=== PATIENT | female | born 1975 | race Caucasian/White ===

== ENCOUNTER → 2020-04-16 | Outpatient (CLI) | payer OTHER | LOC: M.CT 12:12 | PROVIDERS: ATTEND Orthopaedic Surgery | DX: Z13.6 Encounter for screening for cardiovascular disorders (principal) ==

== ENCOUNTER → 2020-05-30 | Outpatient (CLI) | payer OTHER ==
[2020-05-30 15:28] LABS: HEMATOCRIT 42.4 % (37.0-47.0); HEMOGLOBIN 14.6 gm/dL (12.0-15.0); MCH 33.2 pg (26.0-34.0); MCHC 34.5 g/dL (28.0-37.0); MCV 96.2 fL (80.0-100.0); MPV 6.4 fl. (7.2-11.1); RBC 4.41 mil/uL (4.20-5.00); RDW-CV 12.7 % (10.5-14.5); WBC 6.3 thou/uL (4.0-11.0)
[2020-05-30 15:52] LABS: ALBUMIN 4.4 g/dL (3.4-5.0); CALCIUM 8.7 mg/dL (8.5-10.1); CREATININE 1.1 mg/dL (0.6-1.3); POTASSIUM 4.3 mmol/L (3.5-5.1); TOTAL BILIRUBIN 0.7 mg/dL (<0.1-1.0); TOTAL PROTEIN 8.1 g/dL (6.4-8.2)
== END ==
LOC: M.LAB 15:09
PROVIDERS: ATTEND Anesthesiology
DX: E87.6 Hypokalemia (principal)

== ENCOUNTER → 2020-12-31 | Outpatient (CLI) | payer OTHER | LOC: M.MRI 09:10 | PROVIDERS: ATTEND Orthopaedic Surgery | DX: S83.242A Other tear of medial meniscus, current injury, left knee, initial encounter (principal); M17.12 Unilateral primary osteoarthritis, left knee; X58.XXXA Exposure to other specified factors, initial encounter; Y93.89 Activity, other specified; Y92.89 Other specified places as the place of occurrence of the external cause; Y99.8 Other external cause status ==

== ENCOUNTER → 2021-01-16 | Outpatient (CLI) | payer OTHER ==
[~2021-01-16] MED LIST: ADDERALL XR 3030 MG PO; INTERMEZZO3.5 MG PO; LEXAPRO 10 MG T10 M1 PO; LORAZEPAM 1 MG T1 MG PO; NORCO7.5 PO; OMEPRAZOLE 20 M20 M1 PO; PLAQUENIL200 MG PO; TRIAMTERENE/HCT1 CA1 PO
[2021-01-16 14:17] LABS: ABSOLUTE LYMPHOCYTES 1.1 thou/uL (0.8-5.3); ABSOLUTE MONOCYTES 0.5 thou/uL (0.0-1.2); ABSOLUTE NEUTROPHILS 5.9 thou/uL (1.6-8.1); BASOPHILS 0.3 %; EOSINOPHILS 0.3 %; HEMATOCRIT 42.4 % (37.0-47.0); HEMOGLOBIN 14.2 gm/dL (12.0-15.0); MCH 31.5 pg (26.0-34.0); MCHC 33.4 g/dL (28.0-37.0); MCV 94.3 fL (80.0-100.0); MONOCYTES 7.1 %; MPV 6.4 fl. (7.2-11.1); NUCLEATED RBCS 0 /100WBC; PLATELET COUNT* 319 thou/uL (150-400); POLYS 78.3 %; RDW-CV 12.8 % (10.5-14.5); WBC 7.6 thou/uL (4.0-11.0)
[2021-01-16 14:22] LABS: URINE BILIRUBIN NEGATIVE (Negative); URINE BLOOD 2+ (Negative); URINE COLOR YELLOW; URINE GLUCOSE-RANDOM NEGATIVE (Negative); URINE KETONES NEGATIVE (Negative); URINE LEUKOCYTES-REFLEX NEGATIVE (Negative); URINE NITRITE-REFLEX NEGATIVE (Negative); URINE PROTEIN NEGATIVE (Negative); URINE UROBILINOGEN 0.2 E.U./dl (0.2-1.0)
[2021-01-16 14:24] LABS: URINE CLARITY HAZY
[2021-01-16 14:28] LABS: PROTIME 10.8 Seconds (9.20-11.50)
[2021-01-16 14:30] LABS: SQUAMOUS 0-3 Few /LPF (0-3)
[2021-01-16 14:31] LABS: ALBUMIN 4.1 g/dL (3.4-5.0); CALCIUM 9.2 mg/dL (8.5-10.1); CREATININE 0.9 mg/dL (0.6-1.3); POTASSIUM 3.9 mmol/L (3.5-5.1); TOTAL BILIRUBIN 0.7 mg/dL (<0.1-1.0)
[2021-01-16 14:31] LABS: BACTERIA-REFLEX None Seen /HPF (None Seen); CASTS None Seen /LPF (None Seen); CRYSTALS None Seen /LPF (None Seen); URINE RBC 0-2 Rare /HPF (0-2); URINE WBC-REFLEX None Seen /HPF (0-5)
--- NOTE | 2021-01-16 15:13 | EKG ---
[place] [address] ELECTROCARDIOGRAM REPORT Name: KAROLINA CATALAN Room: [facility]#: [id number] Admission: 01/16/21 Attend Phys: Jeff Lacey, Discharge: Date of : 79 Date of Service: 01/16/21 1424 Report #: [id number] THIS REPORT FOR: //name// [facility] Test Date: 2021-01-16 Test Time: 14:24:32 Pat Name: KAROLINA CATALAN Department: Room: Gender: Cook Soup: : 1975 Requested By: Jeff Lacey Order Number: [id number] Reading MD: Wai Seals Measurements Intervals [place] Rate: 88 P: 66 NE: 132 QRS: 46 QRSD: 86 T: 49 QT: 350 QTc: 424 Interpretive Statements Sinus rhythm Possible left atrial enlargement No previous ECG available for comparison Electronically Signed On 01-16-2021 15:13:06 CDT by Wai Seals [email or web address] <ELECTRONICALLY SIGNED> By: Wai Seals MD, [facility] 01/16/21 1513 1424 142 Wai Seals MD, FACC /EPI
== END ==
LOC: M.LAB 13:02
PROVIDERS: ATTEND Orthopaedic Surgery
DX: Z01.818 Encounter for other preprocedural examination (principal); M17.12 Unilateral primary osteoarthritis, left knee; I49.9 Cardiac arrhythmia, unspecified

== ENCOUNTER 2021-01-31 07:27 | Observation (INO) | payer OTHER ==
[~2021-01-31] VITALS: Ht 165.1 cm; Wt 88.5 kg
--- NOTE | ~2021-01-31 | H ---
[address] [address] HISTORY AND PHYSICAL Name: CIRO CATALANRANDA Diaz Room: [address] Damari Patterson#: [id number] Admission: 01/31/21 Attend Phys: Jeff Lacey II Discharge: 01/31/21 Date of : 79 Report #: [id number] THIS REPORT FOR: cc: Celina Bush MD, Veronica A. MD [facility],Medical Records Staff ~ Please refer to the History and Physical performed in the physician's office. By: [id number] Records Staff [facility] /COLT
[2021-01-31] MEDS ORDERED: CELEBREX400 MG PO (07:37)
--- NOTE | 2021-02-04 11:14 | OP ---
[address] [address] OPERATIVE REPORT Name: KAROLINA CATALAN Room: [address] Damari Patterson#: [id number] Admission: 01/31/21 Attend Phys: Jeff Lacey II Discharge: 01/31/21 Date of : 79 Report #: [id number] THIS REPORT FOR: cc: Celina Bush MD, Veronica A. MD Greiner, Robert F. II DO ~ DATE OF SERVICE: 01/31/2021 PREOPERATIVE DIAGNOSIS: Left knee osteoarthritis. POSTOPERATIVE DIAGNOSIS: Left knee osteoarthritis. PROCEDURE: Left total knee arthroplasty. SURGEON: Jeff Lacey II, DO MAINTENANCE INSPECTOR: None. ANESTHESIA: General endotracheal with leg block. ESTIMATED BLOOD LOSS: 50 mL. ANTIBIOTICS: Ancef preoperatively. DRAINS: Medium Hemovac. COMPLICATIONS: None. CONDITION OF THE PATIENT: Stable to recovery room. IMPLANTS USED: Size 5 Journey femur, size 4 Journey tibia and a 9 mm spacer with 32 mm patellar button. BRIEF HISTORY: The patient was seen in the preoperative area. Preoperative H and P was performed. Site was marked, questions were answered. Risks and benefits were discussed with the patient in detail about the surgery. The patient wished to proceed, assuming all risks. This will be outpatient surgery. DESCRIPTION OF PROCEDURE: The patient was taken to the operative suite and placed supine on the operating table, given appropriate anesthesia. A well-padded tourniquet was applied to the upper thigh, which was inflated to 300 mmHg after gravity exsanguination. The operative knee was sterilely prepped and draped. Surgery began by midline incision. This was carried down to the subcutaneous tissues. A medial parapatellar arthrotomy was performed and carried down to bone. The patella was then everted and [place] [address] OPERATIVE REPORT Name: KAROLINA CATALAN Room: [address] Damari Patterson#: [id number] Admission: 01/31/21 Attend Phys: Jeff Lacey II Discharge: 01/31/21 Date of : 79 Report #: [id number] removed around the femur. Femoral cutting block was then applied, checked with drop zuleima for rotational alignment, pinned in appropriate position and appropriate cuts were made. A 5-in-1 cutting block was then applied, checked for rotational alignment, pinned in appropriate position and appropriate cuts were made. The tibia was then exposed. Excess meniscus was removed. Retractor was placed on collateral ligaments. Tibial cutting block was then applied, pinned in appropriate position, checked with drop zuleima for rotational alignment and slope and appropriate cut was made. Tibial bone was removed. Tibial base plate was then applied, checked for rotational alignment with the drop zuleima and pinned in appropriate position. The femur was then applied and box cut was reamed. This was then trialed with appropriate spacer, which showed excellent fit and fill and excellent stability of the knee through all range of motion. The patella was reamed in appropriate fashion and sized to appropriate size. Three peg holes were drilled and knee was then trialed and showed excellent flexion, extension, excellent tracking of patellofemoral groove. These trials were removed. The tibia was punched in appropriate fashion. Bone ends were cleansed with Pulsavac irrigation and cement was mixed and applied to final implants. Knee was then malleted into position and held the knee in extension and compressed to allow cement to cure. After it cured, excess was removed utilizing a Duncan and osteotome. Wound was then copiously irrigated. The final spacer was then malleted into position. The tourniquet was deflated. Hemostasis was maintained with electrocautery. Pain cocktail was injected. Medium Hemovac drain was applied. Capsule was closed with #2 FiberWire and #1 Vicryl in njixaz-ja-jglph fashion. Skin was closed with 2-0 Vicryl and running 3-0 Monocryl. Dermabond and sterile dressing applied. Jagjit wrap and PolarCare applied. The patient transported to recovery room in stable condition. Counts were correct throughout the procedure. <ELECTRONICALLY SIGNED> By: Jeff Lacey II, DO 02/04/21 1114 27 57Jeff Lacey II, DO /nt
== END 2021-01-31 14:20 | disposition home or self-care (01) ==
LOC: M.TBA 07:27 → M.PRE 08:49 → M.TBA 14:20
PROVIDERS: ADMIT Orthopaedic Surgery; ATTEND Orthopaedic Surgery
DX: M17.12 Unilateral primary osteoarthritis, left knee (principal)